=== PATIENT | male | born 1995 | race Caucasian/White ===

== ENCOUNTER 2020-01-12 16:05 | Emergency (ER) | payer BC ==
[2020-01-12] MEDS ORDERED: Morphine 4 MG/ML VIAL ONE (16:46)
[2020-01-12] MEDS ORDERED: CEFAZOLIN 1 GM VIAL ONE (16:47)
[2020-01-12] MEDS ORDERED: Boostrix 0.5 ML VIAL ONE (16:47)
[2020-01-12] MEDS ORDERED: Ketorolac Tromethamine 30 MG/ML VIAL ONE (16:47)
--- NOTE | 2020-01-12 17:00 | RAD ---
Left hand 3 views: 01/12/2020 COMPARISON: None HISTORY: Fall, trauma, pain FINDINGS: No fracture or dislocation. No radiopaque foreign body or subcutaneous gas. IMPRESSION: No acute findings.
[2020-01-12] MEDS ORDERED: Lidocaine 1% (PF) 30 ML VIAL ONE (17:29)
--- NOTE | 2020-01-12 17:37 | CT ---
CT CERVICAL SPINE 01/12/20 PROVIDED CLINICAL HISTORY: Fall, injury. FINDINGS: There is no evidence for fracture or atraumatic subluxation. Prevertebral soft tissue swelling appare nt. The visualized lung apices appear clear. IMPRESSION: No evidence for fracture or traumatic subluxation. POS: [facility]
--- NOTE | 2020-01-12 17:40 | CT ---
CT BRAIN 01/12/20 PROVIDED CLINICAL HISTORY: Head injury. FINDINGS: The ventricular system appears normal in size and morphology. There is no evidence for intracranial hemorrhage or mass effect. There is right parietal scalp swelling without evidence for skull fracture . IMPRESSION: No evidence for intracranial hemorrhage or skull fracture. POS: [facility]
== END 2020-01-12 18:55 | disposition home or self-care (01) ==
LOC: ERS 16:05
DX: S06.0X9A Concussion with loss of consciousness of unspecified duration, initial encounter (principal); S01.01XA Laceration without foreign body of scalp, initial encounter; S60.222A Contusion of left hand, initial encounter; Z23 Encounter for immunization; V29.9XXA Motorcycle rider (driver) (passenger) injured in unspecified traffic accident, initial encounter
CPT/HCPCS: 12001; 70450; 72125; 90471; 90715; 96374; 96375; J0690; J1885; J2001; J2270